=== PATIENT | male | born 1945 | race American Indian/Alaskan Native ===

== ENCOUNTER 2019-03-14 10:55 | Outpatient (CLI) | payer OTHER ==
--- NOTE | 2019-03-14 12:06 | XRay Report ---
LUMBOSACRAL SPINE, 3 VIEWS INDICATION: BACK PAIN. COMPARISON: None. IMPRESSION: Borderline to mild osteopenia. Normal alignment. Mild multilevel degenerative endplate c hanges and facet arthropathy are identified. L4-5 and L5-S1 of the most affected levels. No acute os seous or soft tissue abnormality. RIGHT HIP, 2 VIEWS INDICATION: Right hip pain. COMPARISON: None. IMPRESSION: Borderline to mild osteopenia. No acute osseous or soft tissue abnormality. 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 No evidence for osteonecrosis. Signer Name: Irving Patel Jr, MD Signed: 03/14/2019 12:02 PM Workstation Name: [id number]
== END 2019-03-14 10:56 | disposition home or self-care (01) ==
LOC: SPVIMAG 10:55
PROVIDERS: ATTEND Urology
DX: M16.11 Unilateral primary osteoarthritis, right hip (principal); M85.88 Other specified disorders of bone density and structure, other site
CPT/HCPCS: 72100

== ENCOUNTER 2021-01-01 12:12 | Outpatient (CLI) | payer MEDICARE, OTHER ==
--- NOTE | 2021-01-03 08:48 | XRay Report ---
CHEST 2 VIEWS INDICATION / CLINICAL INFORMATION: COUGH R05. COMPARISON: None available. FINDINGS: SUPPORT DEVICES: None. HEART / MEDIASTINUM: No significant abnormality. LUNGS / PLEURA: Mild increased interstitial prominence. Several small areas of nodularity suggested w ithin the lungs No pneumothorax. ADDITIONAL FINDINGS: No significant additional findings. IMPRESSION: 1. Mild increased interstitial prominence. Areas of interstitial nodularity suggestive the lungs. Fin dings could represent granulomas change or possibly atypical infection however follow-up is recommend ed for pulmonary nodule. Signer Name: Arun Mcpherson MD Signed: 01/03/2021 8:44 AM Workstation Name: [id number]
--- NOTE | 2021-01-03 08:48 | XRay Report ---
Left shoulder 3 views INDICATION: Shoulder pain FINDINGS: Glenohumeral and AC degenerative change. No acute fracture or dislocation. Signer Name: Arun Mcpherson MD Signed: 01/03/2021 8:43 AM Workstation Name: [id number]
== END 2021-01-01 12:13 | disposition home or self-care (01) ==
LOC: SPVIMAG 12:12
PROVIDERS: ATTEND Urology
DX: M19.012 Primary osteoarthritis, left shoulder (principal); R91.8 Other nonspecific abnormal finding of lung field
CPT/HCPCS: 71046

== ENCOUNTER 2021-01-22 14:41 | Outpatient (CLI) | payer MEDICARE, OTHER ==
[2021-01-22 15:47] LABS: Blood Urea Nitrogen 18 mg/dL (9-20)
== END 2021-01-22 14:42 | disposition home or self-care (01) ==
LOC: CT 14:41
PROVIDERS: ATTEND Urology
DX: R91.1 Solitary pulmonary nodule (principal)
CPT/HCPCS: 36415; 82565; 84520

== ENCOUNTER 2021-02-12 10:55 | Outpatient (CLI) | payer MEDICARE, OTHER ==
--- NOTE | 2021-02-12 14:23 | Cat Scan Report ---
. CT chest with contrast INDICATION : PULMONARY NODULE OMNI 300 100 ML. TECHNIQUE: 100 mL of intravenous contrast administered. All CT scans at this location are performed using CT dose reduction for ALARA by means of automated exposure control. COMPARISON: Chest x-ray from 01/01/2021 FINDINGS: Scattered areas of mild interstitial prominence are noted as well as areas of mild groundg lass airspace disease. There is no dense consolidation or pleural effusion. No nodularity. Normal heart size. There is advanced atherosclerotic disease in the coronary arteries. No pathologic mediastinal adenopathy. Limited imaging of the upper abdomen shows nothing acute. There are degenerative changes in the spine with nothing acute. IMPRESSION: Lung findings as outlined above could at least in part represent some chronic underlying interstitial changes; however, given areas of mild groundglass attenuation, recommend appropriate chey[place] ting to rule out an atypical etiology such as viral pneumonia. No pulmonary nodule identified. Signer Name: Chano Quinones MD Signed: 02/12/2021 2:19 PM Workstation Name: [id number]
== END 2021-02-12 10:56 | disposition home or self-care (01) ==
LOC: CT 10:55
PROVIDERS: ATTEND Urology
DX: R91.1 Solitary pulmonary nodule (principal); I25.10 Atherosclerotic heart disease of native coronary artery without angina pectoris; M47.814 Spondylosis without myelopathy or radiculopathy, thoracic region
CPT/HCPCS: 71260; Q9967